=== PATIENT | female | born 1995 | race Caucasian/White ===

== ENCOUNTER 2019-08-30 00:49 | Inpatient (IN) | payer OTHER ==
[~2019-08-30] VITALS: Ht 152.4 cm; Wt 59.4 kg
[2019-08-30] MEDS ORDERED: PREN-380 PO (01:30)
[2019-08-30] MEDS ORDERED: OXYTOCIN 20 UNITS/LR PREMIX 1,000 ML IV ONE (01:39)
[2019-08-30] MEDS ORDERED: LIDOCAINE 1% 500 MG/50 ML VIAL ONE (01:40)
[2019-08-30] MEDS ORDERED: LIDOCAINE MPF 1% 10 MG/ML VIAL INJ SCH (01:55)
[2019-08-30] MEDS ORDERED: fentaNYL 0.05 MG/ML VIAL ONE (01:56)
[2019-08-30] MEDS ORDERED: fentaNYL 0.05 MG/ML VIAL IVP ONE (01:56)
[2019-08-30] MEDS ORDERED: METHYLERGONOVINE 0.2 MG/ML AMP IM PRN (02:35)
[2019-08-30] MEDS ORDERED: IBUPROFEN 800 MG TAB PO PRN (02:35)
[2019-08-30] MEDS ORDERED: MEASLES, MUMPS, AND RUBELLA 1 VIAL SQVAC PRN (02:35)
[2019-08-30] MEDS ORDERED: BENZOCAINE/MENTHOL 20%-0.5% 60 GM CAN TP PRN (02:35)
[2019-08-30] MEDS ORDERED: OXYTOCIN 10 UNITS/ML VIAL IM PRN (02:35)
[2019-08-30] MEDS ORDERED: METHYLERGONOVINE 0.2 MG TAB PO PRN (02:35)
[2019-08-30 03:28] VITALS: BP 145/85
[2019-08-30 08:11] LABS: BASOPHILS % (AUTO) 0.4 % (0.0-2.0); EOSINOPHILS % (AUTO) 0.2 % (0.0-4.0); HEMATOCRIT 35.3 % (36-48); HEMOGLOBIN 11.6 g/dL (12.0-16.0); LYMPHOCYTES % (AUTO) 27.6 % (20.5-51.1); MEAN CORPUSCULAR HEMOGLOBIN 28 pg (27-31); MEAN CORPUSCULAR HGB CONC 33 g/dL (33-37); MEAN CORPUSCULAR VOLUME 86.4 fL (80-94); MONOCYTES # (AUTO) 0.8 K/uL (0.8-1.0); MONOCYTES % (AUTO) 6.9 % (1.7-9.3); NEUTROPHILS # (AUTO) 7.1 K/uL (1.8-7.7); NEUTROPHILS % (AUTO) 64.9 % (42.2-75.2); PLATELET COUNT (AUTO) 166 K/uL (140-450); RED BLOOD CELL COUNT(AUTO) 4.09 MIL/uL (4.20-5.40)
--- NOTE | 2019-08-30 10:08 | NUR ---
PATIENT HAS BEEN SCREENED AND CATEGORIZED LOW NUTRITION RISK. PATIENT WILL BE SEEN WITHIN 5-7 DAYS OF ADMISSION. 09/03/19-09/05/[address]
[2019-08-31] MEDS ORDERED: INFLUENZA VACCINE QUAD 0.5 ML SYR IMVAC PRN (02:50)
[2019-09-01] MEDS ORDERED: INFLUENZA VACCINE QUAD 0.5 ML SYR IMVAC PRN (08:00)
== END 2019-08-31 17:10 | disposition home or self-care (01) | DRG 560 ==
LOC: MLD 00:49 → MFCC 05:37
PROVIDERS: ADMIT Obstetrics & Gynecology; ATTEND Obstetrics & Gynecology
PROC: 10E0XZZ Delivery of Products of Conception, External Approach (ICD-10-PCS; principal; 2019-08-30)
DX: O69.81X0 Labor and delivery complicated by cord around neck, without compression, not applicable or unspecified (principal); O62.3 Precipitate labor; Z37.0 Single live birth; Z3A.39 39 weeks gestation of pregnancy
CPT/HCPCS: 36415; 59409; 85025; 86592; J2001; J2590; J3010

== ENCOUNTER 2024-02-16 09:49 | Emergency (ER) | payer OTHER ==
[~2024-02-16] VITALS: Ht 152.4 cm; Wt 43.1 kg
[~2024-02-16 09:49] MED LIST: PREN-380 PO
[2024-02-16 09:56] VITALS: BP 106/58; PULSE 79; RESP 18; TEMP 98.9; O2SAT 100
[2024-02-16 10:59] LABS: HEMATOCRIT 41.1 % (36-48); LYMPHOCYTES # (AUTO) 0.6 K/uL (2.5-16.5); MEAN CORPUSCULAR HEMOGLOBIN 32 pg (27-31); MEAN CORPUSCULAR HGB CONC 34 g/dL (33-37); MONOCYTES # (AUTO) 0.2 K/uL (0.8-1.0); MONOCYTES % (AUTO) 1.4 % (1.7-9.3); NEUTROPHILS % (AUTO) 94.6 % (42.2-75.2); PLATELET COUNT (AUTO) 280 K/uL (140-450); RED BLOOD CELL COUNT(AUTO) 4.37 MIL/uL (4.20-5.40); RED CELL DISTRIBUTION WIDTH 12.7 % (11.6-13.7); WHITE BLOOD COUNT (AUTO) 14.8 K/uL (4.8-10.8)
[2024-02-16] MEDS: NACL 0.9% 1,000 ML IV ONE (11:03)
[2024-02-16] MEDS: KETOROLAC 30 MG/ML VIAL IVP ONE (11:04)
[2024-02-16] MEDS: METOCLOPRAMIDE 10 MG/2 ML INJ VIAL IVP ONE (11:06)
[2024-02-16 11:17] LABS: CALCIUM 9.2 mg/dL (8.5-10.1); CARBON DIOXIDE 31.3 mmol/L (21-32); CREATININE 0.8 mg/dL (0.6-1.3); POTASSIUM 4.3 mmol/L (3.5-5.1)
[2024-02-16 11:21] LABS: ALBUMIN 4.3 g/dL (3.4-5.0); BILIRUBIN,DIRECT 0.2 mg/dL (0.0-0.3); TOTAL BILIRUBIN 0.7 mg/dL (0.0-1.0); TOTAL PROTEIN, SERUM 7.6 g/dL (6.4-8.2)
[2024-02-16 11:28] LABS: APPEARANCE,URINE CLEAR (CLEAR); BILIRUBIN,URINE NEGATIVE (NEGATIVE); BLOOD, URINE NEGATIVE (NEGATIVE); COLOR,URINE YELLOW (YELLOW); LEUKOCYTE ESTERASE ,URINE NEGATIVE (NEGATIVE); NITRITE, URINE NEGATIVE (NEGATIVE); PH,URINE 7.5 (5.0-9.0); PROTEIN,URINE TRACE (NEGATIVE); UGLUCOSE NEGATIVE (NEGATIVE)
[2024-02-16] MEDS ORDERED: ONDA-188 PO (11:59)
[2024-02-16] MEDS ORDERED: NAPR-337 PO (11:59)
[2024-02-16 12:14] VITALS: BP 102/65; PULSE 65; RESP 16; TEMP 98; O2SAT 98
== END 2024-02-16 12:14 | disposition home or self-care (01) ==
LOC: MED 09:49
DX: K52.9 Noninfective gastroenteritis and colitis, unspecified (principal); Z79.899 Other long term (current) drug therapy
CPT/HCPCS: 36415; 80048; 80076; 81003; 81025; 83690; 85025; 96361; 96374; 96375; 99284; J1885; J2765; J7030